=== PATIENT | female | born 1995 | race Hispanic/Latino ===

== ENCOUNTER → 2025-03-07 | Outpatient (CLI) | payer MEDICAID ==
[~2025-03-07] MED LIST: AZIT250T14 PO; FERR325T59 PO; HYDR-3468 PO; PNV1TABL4 PO; PRED20TA PO
== END | disposition home or self-care (01) ==
LOC: NPLAB 12:44
PROVIDERS: ATTEND Student in an Organized Health Care Education/Training Program
DX: N39.0 Urinary tract infection, site not specified (principal); R30.0 Dysuria
CPT/HCPCS: 87086